=== PATIENT | male | born 1940 | race Two or more races ===

== ENCOUNTER 2018-08-14 13:48 | Outpatient (CLI) | payer OTHER ==
[~2018-08-14 13:48] MED LIST: AVANDIA4 MG PO; AVELOX ABC PAC400 MG PO; DICLOFENAC SODI50 MG PO; FLEXERIL10 MG PO; GLIMEPIRIDE4 MG PO; MILLIPRED DP5 M1 PO; NEURONTIN300 MG PO; ORPH100T PO; SIMVASTATIN80 MG PO; TESSALON PERLE100 MG PO; TRAMADOL HCL-AP1 TAB PO; TRAMADOL HCL50 MG PO; TUSSI PRES-B L120 M1 PO; ULTRAM50 MG PO; ZITHROMAX TRI-500 MG PO; [UNRECOGNIZED DRUG - OTHER]
== END 2018-08-14 17:00 | disposition home or self-care (01) ==
LOC: RAD 13:48
DX: H25.011 Cortical age-related cataract, right eye (principal); Z98.41 Cataract extraction status, right eye

== ENCOUNTER 2022-04-19 19:38 | Emergency (ER) | payer OTHER ==
[~2022-04-19] VITALS: Ht 172.7 cm; Wt 74.8 kg
[2022-04-19] MEDS ORDERED: DICLOFENAC SODI75 MG PO (21:00)
== END 2022-04-19 21:39 | disposition home or self-care (01) ==
LOC: ER 19:38
DX: M54.9 Dorsalgia, unspecified (principal); Z88.0 Allergy status to penicillin

== ENCOUNTER 2023-02-05 12:32 | Emergency (ER) | payer OTHER ==
[~2023-02-05] VITALS: Ht 175.3 cm; Wt 74.8 kg
[~2023-02-05 12:32] MED LIST changes: +DICLOFENAC SODI75 MG PO
== END 2023-02-05 15:48 | disposition home or self-care (01) ==
LOC: ER 12:32
DX: S01.122A Laceration with foreign body of left eyelid and periocular area, initial encounter (principal); W06.XXXA Fall from bed, initial encounter; Y93.89 Activity, other specified; Y92.013 Bedroom of single-family (private) house as the place of occurrence of the external cause; Z88.0 Allergy status to penicillin; E78.00 Pure hypercholesterolemia, unspecified